=== PATIENT | female | born 1940 | race Caucasian/White ===

== ENCOUNTER 2017-03-22 13:12 | Emergency (ER) | payer OTHER ==
[~2017-03-22] VITALS: Ht 162.6 cm; Wt 73.0 kg
[~2017-03-22 13:12] MED LIST: ACCUPRIL40 MG PO; ALENDRONATE SOD10 MG PO; ALENDRONATE SOD40 MG PO; ALFALFA1 EACH PO; ASPIRIN E.C.81 M1 PO; Calcium Carbonate,Ca PO; DOMP10T PO; FOSAMAX70 MG PO; GARLIC1000 MG PO; LO-DOSE ASPIRIN81 M1 PO; PROTONIX40 MG PO; QUINAPRIL HCL20 MG PO; QUINAPRIL HCL40 MG PO; SERTRALINE HCL50 MG PO; SIMVASTATIN20 MG PO; WELLBUTRIN75 MG PO; WOMEN'S DAILY1 EAC1 PO; ZOLOFT50 MG PO; Zoloft PO
[2017-03-22 14:27] VITALS: BP 122/79
== END 2017-03-22 14:27 | disposition home or self-care (01) ==
LOC: EME 13:12
DX: S93.402A Sprain of unspecified ligament of left ankle, initial encounter (principal); W17.89XA Other fall from one level to another, initial encounter; Y92.000 Kitchen of unspecified non-institutional (private) residence as the place of occurrence of the external cause; I10 Essential (primary) hypertension; E78.00 Pure hypercholesterolemia, unspecified; Z79.82 Long term (current) use of aspirin
CPT/HCPCS: 73610; 99281; 99284

== ENCOUNTER 2017-06-21 11:02 | Observation (INO) | payer OTHER ==
[~2017-06-21] VITALS: Ht 162.6 cm; Wt 71.7 kg
[2017-06-21 11:23] LABS: HEMATOCRIT 28.2 % (36.0-46.0); MCH 22.2 PG (29.0-34.0); MCHC 29.4 G/DL (30.0-36.0); MCV 75.4 FL (83-99); MEAN PLAT.VOLUME 10.6 uM^3 (9.5-12.4); PLATELET COUNT 191 K/uL (156-360); RBC DIS.WIDTH-CV 17.9 % (11.8-14.6); RBC DIS.WIDTH-SD 49.1 % (39-53); RED BLOOD COUNT 3.74 M/uL (3.80-5.20); WHITE BLOOD COUNT 5.3 K/uL (4.1-10.2)
[2017-06-21 11:38] LABS: CHLORIDE 105 mEq/L (99-109); SODIUM 138 mEq/L (136-147)
[2017-06-21 11:39] LABS: GLUCOSE 125 mg/dL (70-99)
[2017-06-21 11:41] LABS: ANION GAP 12 MEQ/L (2-14)
[2017-06-21 11:43] LABS: GFR ESTIMATE (CALCULATED) > 59 mL/min/
[2017-06-21 11:44] LABS: UREA NITROGEN (BUN) 26 mg/dL (9-23)
[2017-06-21 11:46] LABS: TROP-I INTERPRETATION NEGATIVE; TROPONIN-I < 0.01 ng/mL (0.0-0.30)
[2017-06-21 12:23] LABS: PTT 25.8 SEC (25-37)
[2017-06-21 12:28] LABS: INTER. NORMALIZED RATIO 1.1; PROTHROMBIN TIME 12.3 SEC (10.2-12.9)
[2017-06-21 13:13] LABS: HEMATOCRIT 27.5 % (36.0-46.0); MCV 75.5 FL (83-99)
[2017-06-21 13:34] LABS: TROP-I INTERPRETATION NEGATIVE; TROPONIN-I < 0.01 ng/mL (0.0-0.30)
[2017-06-21 13:44] LABS: HDL CHOLESTEROL 74 MG/DL (Desirable>=50); IRON 14 MCG/DL (35-150); LDL CHOLESTEROL 49 mg/dL (Desirable<100); NON-HDL CHOLESTEROL 64 mg/dL (Desirable<160); TOTAL CHOLESTEROL 138 mg/dL (Desirable<200); TRIGLYCERIDES 75 MG/DL (Normal: <150)
[2017-06-21 13:59] LABS: Estimated Average Glucose 140 mg/dL (70-123); HEMOGLOBIN A1c (GLYCOHEMOGLOB) 6.5 % HGB (Below 5.7)
[2017-06-21 15:09] VITALS: BP 140/70
[2017-06-21 19:14] LABS: HEMATOCRIT 31.6 % (36.0-46.0); MCV 75.1 FL (83-99)
[2017-06-21 19:34] LABS: TROP-I INTERPRETATION NEGATIVE; TROPONIN-I < 0.01 ng/mL (0.0-0.30)
[2017-06-21 19:35] VITALS: BP 142/74
[2017-06-21 23:31] VITALS: BP 108/59
[2017-06-22 03:19] VITALS: BP 123/74
[2017-06-22 05:17] LABS: HEMATOCRIT 26.8 % (36.0-46.0); MCV 74.7 FL (83-99)
[2017-06-22 07:45] VITALS: BP 135/77
[2017-06-22] MEDS ORDERED: FERROUS SULFAT325 MG PO (14:46)
[2017-06-22] MEDS ORDERED: LOPRESSOR25 MG PO (14:46)
== END 2017-06-22 17:16 | disposition home or self-care (01) ==
LOC: EME 11:02 → 5WEST 12:32 → EDOF 12:32 → ENRESERV 12:38 → 5WEST 14:46
PROVIDERS: Hospitalist
DX: R07.9 Chest pain, unspecified (principal); I10 Essential (primary) hypertension; E78.5 Hyperlipidemia, unspecified; E11.9 Type 2 diabetes mellitus without complications; F32.9 Major depressive disorder, single episode, unspecified; D50.9 Iron deficiency anemia, unspecified; Z87.19 Personal history of other diseases of the digestive system; K21.9 Gastro-esophageal reflux disease without esophagitis; K44.9 Diaphragmatic hernia without obstruction or gangrene; R42 Dizziness and giddiness; Z85.820 Personal history of malignant melanoma of skin; Z90.710 Acquired absence of both cervix and uterus; Z83.3 Family history of diabetes mellitus; Z88.0 Allergy status to penicillin
CPT/HCPCS: 71020; 71275; 78452; 80048; 80061; 82272; 82607; 82746; 83036; 83540; 84466; 84484; 85014; 85018; 85027; 85610; 85730; 93005; 93017; 99281; 99285; A9500; G0378; J2785

== ENCOUNTER 2017-09-18 21:41 | Observation (INO) | payer OTHER ==
[~2017-09-18] VITALS: Ht 162.6 cm; Wt 71.7 kg
[~2017-09-18 21:41] MED LIST changes: +FERROUS SULFAT325 MG PO; +LOPRESSOR25 MG PO
[2017-09-18 22:25] LABS: HEMATOCRIT 38.7 % (36.0-46.0); HEMOGLOBIN 12.7 G/DL (11.9-15.5); MCHC 32.8 G/DL (30.0-36.0); MCV 85.2 FL (83-99); PLATELET COUNT 200 K/uL (156-360); RBC DIS.WIDTH-CV 19.5 % (11.8-14.6); RBC DIS.WIDTH-SD 60.6 % (39-53); RED BLOOD COUNT 4.54 M/uL (3.80-5.20); WHITE BLOOD COUNT 8.9 K/uL (4.1-10.2)
[2017-09-18 22:44] LABS: ALBUMIN 4.5 g/dL (3.2-4.8)
[2017-09-18 22:45] LABS: CHLORIDE 103 mEq/L (99-109); POTASSIUM 4.5 mEq/L (3.7-5.4); SODIUM 139 mEq/L (136-147)
[2017-09-18 22:47] LABS: GLUCOSE 161 mg/dL (70-99); TOTAL PROTEIN 7.3 g/dL (6.4-8.3)
[2017-09-18 22:49] LABS: TOTAL BILIRUBIN 0.3 mg/dL (0.0-1.0)
[2017-09-18 22:50] LABS: ALKALINE PHOSPHATASE 73 IU/L (3-129)
[2017-09-18 22:51] LABS: GFR ESTIMATE (CALCULATED) 57 mL/min/
[2017-09-18 22:52] LABS: AST (GOT) 34 IU/L (2-34); UREA NITROGEN (BUN) 26 mg/dL (9-23)
[2017-09-18 22:53] LABS: ALT (GPT) 32 IU/L (3-49); TROP-I INTERPRETATION NEGATIVE; TROPONIN-I < 0.01 ng/mL (0.0-0.30)
[2017-09-18 22:54] LABS: LIPASE 26 U/L (1.0-51.0)
[2017-09-18 22:58] LABS: CREATINE KINASE 75 IU/L (1-294)
[2017-09-19 03:49] LABS: APPEARANCE CLEAR ((CLEAR)); COLOR YELLOW ((YELLOW)); LEUKOCYTES TRACE; NITRITE NEGATIVE; PROTEIN (STRIP) NEGATIVE
[2017-09-19 03:50] LABS: BILIRUBIN NEGATIVE; BLOOD NEGATIVE; GLUCOSE (STRIP) NEGATIVE; KETONES NEGATIVE; UROBILINOGEN 0.2 MG/DL (0.2-1.0)
[2017-09-19 03:52] LABS: BACTERIA NONE SEEN /HPF; EPITHELIAL CELLS NONE SEEN /HPF; MUCUS NONE SEEN /LPF; RED BLOOD CELLS NONE SEEN /HPF (0-5); UCUL ADDED? NO; WHITE BLOOD CELLS 0-5 /HPF (0-5)
[2017-09-19] MEDS ORDERED: GLUCOPHAGE500 MG PO (08:14)
[2017-09-19] MEDS ORDERED: ACCUPRIL40 MG PO (08:14)
[2017-09-19] MEDS ORDERED: PROTONIX40 MG PO (08:14)
[2017-09-19] MEDS ORDERED: AMLODIPINE BES2.5 MG PO (08:14)
[2017-09-19] MEDS ORDERED: ZOLOFT100 MG PO (08:15)
[2017-09-19] MEDS ORDERED: DAILY VALUE1 EACH PO (08:15)
[2017-09-19] MEDS ORDERED: ADULT ASPIRIN R81 MG PO (08:15)
[2017-09-19] MEDS ORDERED: LOPRESSOR25 MG PO (08:15)
[2017-09-19] MEDS ORDERED: IRON325 M1 PO (08:15)
[2017-09-19] MEDS ORDERED: SIMVASTATIN20 MG PO (08:16)
[2017-09-19] MEDS ORDERED: GARLIC100 MG PO (08:16)
[2017-09-19 11:09] LABS: HDL CHOLESTEROL 85 MG/DL (Desirable>=50); LDL CHOLESTEROL 81 mg/dL (Desirable<100); NON-HDL CHOLESTEROL 99 mg/dL (Desirable<160); TOTAL CHOLESTEROL 184 mg/dL (Desirable<200); TRIGLYCERIDES 92 MG/DL (Normal: <150)
[2017-09-19 11:39] LABS: TROP-I INTERPRETATION NEGATIVE; TROPONIN-I < 0.01 ng/mL (0.0-0.30)
[2017-09-19 17:44] VITALS: BP 178/82
[2017-09-19 19:51] VITALS: BP 158/74
[2017-09-19 20:13] LABS: TROP-I INTERPRETATION NEGATIVE; TROPONIN-I 0.01 ng/mL (0.0-0.30)
[2017-09-19 23:20] VITALS: BP 127/73
[2017-09-20 03:18] VITALS: BP 131/70
[2017-09-20 06:34] LABS: BASOPHIL (%) 0.7 % (0-1); EOSINOPHIL (%) 2.3 % (0-5); EOSINOPHIL COUNT 0.1 K/uL (0-0.3); HEMATOCRIT 37.9 % (36.0-46.0); HEMOGLOBIN 12.1 G/DL (11.9-15.5); IMMATURE GRANULOCYTE (%) 0.2 % (0.0-0.7); LYMPHOCYTE (%) 39.9 % (15-42); LYMPHOCYTE COUNT 2.4 K/uL (1.0-2.8); MCH 27.1 PG (29.0-34.0); MCHC 31.9 G/DL (30.0-36.0); MONOCYTE (%) 8.6 % (3-12); MONOCYTE COUNT 0.5 K/uL (0-0.8); NEUTROPHIL (%) 48.3 % (45-76); NEUTROPHIL COUNT 2.9 K/uL (1.8-6.4); PLATELET COUNT 182 K/uL (156-360); RBC DIS.WIDTH-CV 19.3 % (11.8-14.6); RBC DIS.WIDTH-SD 59.7 % (39-53); RED BLOOD COUNT 4.46 M/uL (3.80-5.20)
[2017-09-20 06:52] LABS: CHLORIDE 106 MEQ/L (99-109); CREATININE 0.8 MG/DL (0.6-1.3); GFR ESTIMATE (CALCULATED) > 59 mL/min/; POTASSIUM 4.2 MEQ/L (3.7-5.4); SODIUM 140 MEQ/L (136-147); UREA NITROGEN (BUN) 21 mg/dL (9-23)
[2017-09-20 06:55] LABS: GLUCOSE 107 mg/dL (70-99)
[2017-09-20 09:16] VITALS: BP 168/79
[2017-09-20 12:32] VITALS: BP 152/64
[2017-09-20] MEDS ORDERED: LOPRESSOR25 MG PO (12:38)
[2017-09-20] MEDS ORDERED: ADVIL200 MG PO (12:40)
[2017-09-20] MEDS ORDERED: TUMS500 MG PO (12:41)
== END 2017-09-20 15:31 | disposition home or self-care (01) ==
LOC: EME 21:41 → EDOF 09-19 04:24 → 5WEST 09-19 04:24 → EDOF 09-19 04:24 → ENRESERV 09-19 04:25 → 5WEST 09-19 16:21 → ENPENDDIS 09-20 12:43 → 5WEST 09-20 15:31
PROVIDERS: Emergency Medicine; Hospitalist; Internal Medicine; Physician Assistant Medical
DX: R07.9 Chest pain, unspecified (principal); I10 Essential (primary) hypertension; I95.9 Hypotension, unspecified; K21.9 Gastro-esophageal reflux disease without esophagitis; E78.5 Hyperlipidemia, unspecified; E11.9 Type 2 diabetes mellitus without complications; K44.9 Diaphragmatic hernia without obstruction or gangrene; E66.9 Obesity, unspecified; Z85.820 Personal history of malignant melanoma of skin; D50.9 Iron deficiency anemia, unspecified; Z90.710 Acquired absence of both cervix and uterus; Z88.0 Allergy status to penicillin; F32.9 Major depressive disorder, single episode, unspecified; F41.9 Anxiety disorder, unspecified; G89.29 Other chronic pain; Z68.27 Body mass index [BMI] 27.0-27.9, adult; Z79.82 Long term (current) use of aspirin; Z79.84 Long term (current) use of oral hypoglycemic drugs; Z83.3 Family history of diabetes mellitus; Z82.49 Family history of ischemic heart disease and other diseases of the circulatory system
CPT/HCPCS: 70450; 71046; 72125; 80048; 80053; 80061; 81003; 82550; 82550 91; 82948; 83690; 84484; 85025; 85027; 93005; 99281; 99285; G0378; G8978 GP CJ; G8979 GP CI; G8980 CJ; J1644; J7030

== ENCOUNTER 2018-01-27 23:50 | Emergency (ER) | payer OTHER ==
[~2018-01-27] VITALS: Ht 162.6 cm; Wt 62.4 kg
[~2018-01-27 23:50] MED LIST changes: +ADULT ASPIRIN R81 MG PO; +ADVIL200 MG PO; +AMLODIPINE BES2.5 MG PO; +DAILY VALUE1 EACH PO; +GARLIC100 MG PO; +GLUCOPHAGE500 MG PO; +IRON325 M1 PO; +TUMS500 MG PO; +ZOLOFT100 MG PO
[2018-01-28 00:30] LABS: APPEARANCE SL.HAZY ((CLEAR)); BILIRUBIN NEGATIVE; BLOOD NEGATIVE; COLOR YELLOW ((YELLOW)); GLUCOSE (STRIP) NEGATIVE; KETONES NEGATIVE; LEUKOCYTES MODERATE; NITRITE NEGATIVE; PROTEIN (STRIP) NEGATIVE; SPECIFIC GRAVITY 1.021 (1.000-1.030); UROBILINOGEN 0.2 MG/DL (0.2-1.0)
[2018-01-28 00:30] LABS: HEMATOCRIT 43.6 % (36.0-46.0); HEMOGLOBIN 14.2 G/DL (11.9-15.5); MCH 29.4 PG (29.0-34.0); MCHC 32.6 G/DL (30.0-36.0); MCV 90.3 FL (83-99); PLATELET COUNT 194 K/uL (156-360); RBC DIS.WIDTH-CV 14.6 % (11.8-14.6); RED BLOOD COUNT 4.83 M/uL (3.80-5.20); WHITE BLOOD COUNT 7.1 K/uL (4.1-10.2)
[2018-01-28 00:33] LABS: BACTERIA RARE /HPF; EPITHELIAL CELLS RARE /HPF; HYALINE CASTS 0-5 /LPF; MUCUS TRACE /LPF; RED BLOOD CELLS 0-5 /HPF (0-5); UCUL ADDED? YES; WHITE BLOOD CELLS 20-30 /HPF (0-5)
[2018-01-28 00:41] LABS: ALBUMIN 4.7 g/dL (3.2-4.8); CHLORIDE 104 mEq/L (99-109); POTASSIUM 3.9 mEq/L (3.7-5.4); SODIUM 142 mEq/L (136-147)
[2018-01-28 00:43] LABS: GLUCOSE 99 mg/dL (70-99)
[2018-01-28 00:44] LABS: TOTAL PROTEIN 7.7 g/dL (6.4-8.3)
[2018-01-28 00:45] LABS: TOTAL BILIRUBIN 0.5 mg/dL (0.0-1.0)
[2018-01-28 00:46] LABS: SERUM ETHYL ALCOHOL < 10 mg/dL
[2018-01-28 00:47] LABS: ALKALINE PHOSPHATASE 72 IU/L (3-129); CREATININE 0.9 mg/dL (0.6-1.3); GFR ESTIMATE (CALCULATED) > 59 mL/min/
[2018-01-28 00:48] LABS: UREA NITROGEN (BUN) 22 mg/dL (9-23)
[2018-01-28 00:49] LABS: AST (GOT) 24 IU/L (2-34)
[2018-01-28 00:50] LABS: ALT (GPT) 19 IU/L (3-49)
[2018-01-28 00:50] LABS: AMPHETAMINE NEGATIVE (500 ng/mL); BARBITURATES NEGATIVE (200 ng/mL); BENZODIAZEPINES NEGATIVE (150 ng/mL); BUPRENORPHINE NEGATIVE (10 ng/mL); COCAINE NEGATIVE (150 ng/mL); METHADONE NEGATIVE (200 ng/mL); METHAMPHETAMINE NEGATIVE (500 ng/mL); OPIATES (MORPHINE) NEGATIVE (100 ng/mL); OXYCODONE NEGATIVE (100 ng/mL); PHENCYCLIDINE NEGATIVE (25 ng/mL); PROPOXYPHENE NEGATIVE (300 ng/mL); THC CANNABINOIDS NEGATIVE (50 ng/mL); TRICYCLIC ANTIDEPRESSANTS NEGATIVE (300 ng/mL)
[2018-01-28] MEDS ORDERED: BACTRIM,SEPT1 TABLET PO (02:03)
[2018-01-28 02:46] VITALS: BP 152/97
== END 2018-01-28 02:40 | disposition home or self-care (01) ==
LOC: EME 23:50
PROVIDERS: Emergency Medicine
DX: N39.0 Urinary tract infection, site not specified (principal); F32.9 Major depressive disorder, single episode, unspecified; I10 Essential (primary) hypertension; E78.5 Hyperlipidemia, unspecified; K21.9 Gastro-esophageal reflux disease without esophagitis; Z79.82 Long term (current) use of aspirin; Z88.0 Allergy status to penicillin
CPT/HCPCS: 70450; 80053; 81003; 85027; 87086 GA; 90839; 99281; 99284; G0480